=== PATIENT | female | born 1965 | race African-American/Black ===

== ENCOUNTER 2021-01-27 08:00 | Outpatient (CLI) | payer BC ==
--- NOTE | 2021-01-27 18:40 | XRAY Report ---
PROCEDURE: Chest 2 View X-Ray INDICATIONS: CHEST TIGHTNESS TECHNIQUE: 2 view(s) of the chest. COMPARISON: None. FINDINGS: Surgical changes and devices: None. Lungs and pleura: No pleural effusions or pneumothorax. Lungs are clear. Mediastinum: Mediastinal contours are normal. Heart size is normal. Bones and chest wall: No suspicious bony abnormalities. Soft tissues appear unremarkable. IMPRESSION: No acute cardiopulmonary pathology. Reviewed by: Robert Jackson MD on 01/27/2021 6:39 PM PST Approved by: Robert Jackson MD on 01/27/2021 6:39 PM [facility] Station ID: [id number]
== END 2021-01-27 23:59 | disposition home or self-care (01) ==
LOC: DI.S 08:00
PROVIDERS: ATTEND Physician Assistant
DX: R07.89 Other chest pain (principal); Z20.822 Contact with and (suspected) exposure to COVID-19